=== PATIENT | female | born 1950 | race Caucasian/White ===

== ENCOUNTER 2017-10-27 12:47 | Emergency (ER) | payer MEDICARE ==
--- NOTE | 2017-10-27 14:12 | ERPHSYRPT ---
- History of Present Illness Time Seen by Provider: 10/27/17 14:12 Source: patient Exam Limitations: no limitations Patient Subjective Stated Complaint: pt reports increased shortness of breath the past 2 days. reports a productive cough with thick, clear sputum. also reports left rib pain. Triage Nursing Assessment: pt is aox3, pupils perrl, pt afebrile, pt short of breath at rest, pt is able to speak in 4-5 word sentences. lung sound are coarse with expiratory wheezes. radial pulses are strong and equal, cap refill < 3 seconds, no edema noted. intermittent cough noted upon exam with production of thick sputum. Physician History: The patient is a 67-year-old female with a history of COPD complains of 2 days of worsening cough with sputum and increasing shortness of breath. She uses 3 L of supplemental O2 by nasal cannula at home all the time. She had chills during the night a ago. Her past medical history is significant for hypertension, COPD, and high cholesterol. Timing/Duration: day(s) (2), gradual onset, worse Cough Quality/Degree: severe, productive cough Possible Cause: occasional episodes, smoke exposure Modifying Factors: Improves With: albuterol inhaler, albuterol nebulizer, coughing, exertion Associated Symptoms: chills, cough, nasal congestion, shortness of breath Allergies/Adverse Reactions: codeine Adverse Reaction (Verified 10/27/17 13:13) Home Medications: Albuterol Sulfate [Albuterol Sulfate Hfa] 8.5 gm IH QIDPRN PRN 10/27/17 [History ] Amlodipine Besylate 10 mg [Norvasc 10 MG] 10 mg PO DAILY 10/27/17 [History] Bumetanide 1 mg [Bumex 1 mg] 1 mg PO DAILY 10/27/17 [History] Ezetimibe 10 mg PO HS 10/27/17 [History] Fluticasone/Vilanterol [Breo Ellipta 100-25 Mcg INH] 0 mg IH QIDPRN PRN [History] Ipratropium/Albuterol Sulfate [Combivent Respimat 20-100 Mcg] 4 gm IH QID PRN PRN 10/27/17 [History] Meloxicam 15 mg [Meloxicam 15 MG] 15 mg PO DAILY 10/27/17 [History] Pramipexole Di-HCl [Mirapex] 0.125 mg PO HS 10/27/17 [History] Roflumilast [Daliresp] 500 mg PO DAILY 10/27/17 [History] Valsartan 80 mg PO DAILY 10/27/17 [History] Hx Tetanus, Diphtheria Vaccination/Date Given: Yes Hx Influenza Vaccination/Date Given: Yes Hx Pneumococcal Vaccination/Date Given: Yes Immunizations Up to Date: Yes - Review of Systems Constitutional: No Fever, No Chills Eyes: No Symptoms Ears, Nose, & Throat: No Symptoms Respiratory: Cough, Dyspnea, Dyspnea on Exertion (GUARDADO), Wheezing Cardiac: No Chest Pain, No Edema, No Syncope Abdominal/Gastrointestinal: No Abdominal Pain, No Nausea, No Vomiting, No Diarrhea Genitourinary Symptoms: No Dysuria Musculoskeletal: No Back Pain, No Neck Pain Skin: No Rash Neurological: No Dizziness, No Focal Weakness, No Sensory Changes Psychological: No Symptoms Endocrine: No Symptoms Hematologic/Lymphatic: No Symptoms Immunological/Allergic: No Symptoms All Other Systems: Reviewed and Negative - Past Medical History Pertinent Past Medical History: Yes Neurological History: No Pertinent History ENT History: Cataracts Cardiac History: Hypertension Respiratory History: COPD, Emphysema Musculoskeletal History: Arthritis GI Medical History: No Pertinent History History: Other Psycho-Social History: No Pertinent History Female Reproductive Disorders: Other - Past Surgical History Past Surgical History: Yes Gastrointestinal: Hernia Repair Female Surgical History: Hysterectomy Other Surgical History: BLADDER SURGERY - Social History Smoking Status: Former smoker How long have you smoked: 49 Drug Use: none Patient Lives Alone: Yes - Female History Hx Now: No - Nursing Vital Signs Nursing Vital Signs: Initial Vital Signs Temperature 98.5 F 10/27/17 12:57 Pulse Rate 85 10/27/17 12:57 Respiratory Rate 26 H 10/27/17 12:57 Blood Pressure 125/71 10/27/17 12:57 O2 Sat by Pulse Oximetry 96 10/27/17 12:57 Pain Scale Pain Intensity 8 - Physical Exam General Appearance: mild distress Eye Exam: PERRL/EOMI, eyes nml inspection Ears, Nose, Throat Exam: normal ENT inspection, TMs normal, pharynx normal, moist mucous membranes Neck Exam: normal inspection, non-tender, supple, full range of motion Respiratory Exam: diminished breath sounds, prolonged expirations, wheezing Cardiovascular Exam: regular rate/rhythm, normal heart sounds Gastrointestinal/Abdomen Exam: soft, No tenderness Pelvic Exam: not done Rectal Exam: not done Back Exam: normal inspection, No CVA tenderness, No vertebral tenderness Extremity Exam: normal inspection, normal range of motion Neurologic Exam: alert, oriented x 3, cooperative, normal mood/affect, sensation nml, No motor deficits Skin Exam: normal color, warm, dry, No rash Lymphatic Exam: No adenopathy SpO2 Interpretation: normal SpO2: 96 Oxygen Delivery: Nasal Cannula - Radiology Exams Chest X-ray Interpretation: Reviewed by me, Teleradiologist Report (per Dr Bob), Negative Ordered Tests: Active Orders 24 hr Category Date Time Status IV Insertion STAT Care 10/27/17 14:21 Active Oxygen-ED Only NASAL CANNULA 3 lpm Care 10/27/17 14:21 Active CHEST 2 VIEWS (PA AND LAT) Stat Exams 10/27/17 14:21 Completed CBC W DIFF Stat Lab 10/27/17 13:15 Completed CMP Stat Lab 10/27/17 13:15 Completed Lactic Acid Stat Lab 10/27/17 14:40 Completed NT PRO BNP Stat Lab 10/27/17 13:15 Completed TROPONIN Q3H Lab 10/27/17 13:15 Completed TROPONIN Q3H Lab 10/27/17 17:30 Ordered TROPONIN Q3H Lab 10/27/17 20:30 Ordered TROPONIN Q3H Lab 10/27/17 23:30 Ordered TROPONIN Q3H Lab 10/28/17 02:30 Ordered Peak Expiratory Flow Rate ONCE RT 10/27/17 14:34 Active Respiratory Nebulizer STAT RT 10/27/17 14:22 Completed Respiratory Therapy Assessment DAILY RT 10/27/17 14:33 Active Medication Summary Discontinued Medications Generic Name Dose Route Start Last Admin Trade Name Freq PRN Reason Stop Dose Admin Albuterol/Ipratropium 3 ml 10/27/17 14:21 10/27/17 14:30 Duoneb 0.5-3 Mg/3 Ml Neb IH 10/27/17 14:22 3 ml STAT ONE Administration Albuterol/Ipratropium Confirm 10/27/17 14:29 Duoneb 0.5-3 Mg/3 Ml Neb Administered 10/27/17 14:30 Dose 3 ml IH .STK-MED ONE Methylprednisolone Sodium Succinate 125 mg 10/27/17 14:21 10/27/17 14:40 Solu-Medrol 125 Mg IV 10/27/17 14:22 125 mg STAT ONE Administration Methylprednisolone Sodium Succinate Confirm 10/27/17 14:38 Solu-Medrol 125 Mg Administered 10/27/17 14:39 Dose 125 mg .ROUTE .STK-MED ONE Lab/Rad Data: Laboratory Result Diagrams 10/27/17 13:15 10/27/17 13:15 Laboratory Results 10/27/17 10/27/17 10/27/17 Range/Units 14:40 13:15 13:15 WBC (4.0-10.5) K/mm3 RBC (4.1-5.4) M/mm3 Hgb (12.0-16.0) gm/dl Hct (35-47) % MCV (78-100) fl MCH (26-32) pg MCHC (32-36) g/dl RDW (11.5-14.0) % Plt Count (150-450) K/mm3 MPV (6-9.5) fl Gran % (36.0-66.0) % Eos # (Auto) (0-0.5) Absolute Lymphs (auto) (1.0-4.6) Absolute Monos (auto) (0.0-1.3) Lymphocytes % (24.0-44.0) % Monocytes % (0.0-12.0) % Eosinophils % (0.00-5.0) % Basophils % (0.0-0.4) % Absolute Granulocytes (1.4-6.9) Basophils # (0-0.4) Sodium 141 (137-145) mmol/L Potassium 4.1 (3.5-5.1) mmol/L Chloride 101 (98-107) mmol/L Carbon Dioxide 32 H (22-30) mmol/L Anion Gap 12.7 (5-15) MEQ/L BUN 8 (7-17) mg/dL Creatinine 0.50 L (0.52-1.04) mg/dL Estimated GFR > 60.0 ML/MIN Glucose 120 H (74-106) mg/dL Lactic Acid 1.0 (0.4-2.0) Calcium 9.7 (8.4-10.2) mg/dL Total Bilirubin 0.40 (0.2-1.3) mg/dL AST 27 (14-36) U/L ALT 22 (0-35) U/L Alkaline Phosphatase 111 (38-126) U/L Troponin I < 0.012 (0.000-0.034) ng/mL NT-Pro-B Natriuret Pep 52.1 (0-900) pg/mL Serum Total Protein 7.7 (6.3-8.2) g/dL Albumin 4.5 (3.5-5.0) g/dL 10/27/17 Range/Units 13:15 WBC 7.9 (4.0-10.5) K/mm3 RBC 4.33 (4.1-5.4) M/mm3 Hgb 13.5 (12.0-16.0) gm/dl Hct 42.5 (35-47) % MCV 98.2 (78-100) fl MCH 31.2 (26-32) pg MCHC 31.8 L (32-36) g/dl RDW 13.0 (11.5-14.0) % Plt Count 254 (150-450) K/mm3 MPV 11.0 H (6-9.5) fl Gran % 59.7 (36.0-66.0) % Eos # (Auto) 0.19 (0-0.5) Absolute Lymphs (auto) 2.44 (1.0-4.6) Absolute Monos (auto) 0.56 (0.0-1.3) Lymphocytes % 30.7 (24.0-44.0) % Monocytes % 7.1 (0.0-12.0) % Eosinophils % 2.4 (0.00-5.0) % Basophils % 0.1 (0.0-0.4) % Absolute Granulocytes 4.74 (1.4-6.9) Basophils # 0.01 (0-0.4) Sodium (137-145) mmol/L Potassium (3.5-5.1) mmol/L Chloride (98-107) mmol/L Carbon Dioxide (22-30) mmol/L Anion Gap (5-15) MEQ/L BUN (7-17) mg/dL Creatinine (0.52-1.04) mg/dL Estimated GFR ML/MIN Glucose (74-106) mg/dL Lactic Acid (0.4-2.0) Calcium (8.4-10.2) mg/dL Total Bilirubin (0.2-1.3) mg/dL AST (14-36) U/L ALT (0-35) U/L Alkaline Phosphatase (38-126) U/L Troponin I (0.000-0.034) ng/mL NT-Pro-B Natriuret Pep (0-900) pg/mL Serum Total Protein (6.3-8.2) g/dL Albumin (3.5-5.0) g/dL - Progress Progress: improved Air Movement: good Progress Note: 10/27/17 15:33 wheezes resolved. Blood Culture(s) Obtained: No Antibiotics given: Yes Counseled pt/family regarding: lab results, diagnosis, need for follow-up, rad results - Departure Time of Disposition: 15:33 Departure Disposition: Home Clinical Impression: Bronchitis, Wheezing Condition: Stable Critical Care Time: No Referrals: BALAJI GÓMEZ [Primary Care Provider] - Additional Instructions: You have bronchitis with wheezing. You were given a DuoNeb treatment and Solu- Medrol 125 mg by IV in the ER. Take prednisone 60 mg daily for 5 days. Take azithromycin 500 mg a day and 250 mg daily for 4 more days. Take Tessalon 100 mg every 8 hours as needed for cough. Follow-up with your primary medical doctor in 2-3 days. Prescriptions: Benzonatate [Tessalon Perle] 100 mg PO Q8H PRN PRN #10 capsule PRN Reason: Cough Azithromycin 250 mg [Zithromax 250 MG TABLET] 250 mg PO ZPACK #6 tablet Prednisone 20 mg [Deltasone 20 mg] 3 tab PO DAILY #15 tablet
[2017-10-27] MEDS ORDERED: DUONEB 0.5-3 MG/3 ml Neb IH ONE ×2 (14:21→14:29)
[2017-10-27] MEDS ORDERED: solu-MEDROL 125 MG IV ONE (14:21)
[2017-10-27] MEDS ORDERED: solu-MEDROL 125 MG ONE (14:38)
[2017-10-27 15:06] LABS: BASOPHIL % 0.1 % (0.0-0.4); Basophil (Absolute #) 0.01 (0-0.4); Eosinophil % 2.4 % (0.00-5.0); Eosinophil (Absolute #) 0.19 (0-0.5); Granulocyte Absolute (ANC) 4.74 (1.4-6.9); Granulocytes % 59.7 % (36.0-66.0); Hematocrit 42.5 % (35-47); Hemoglobin 13.5 gm/dl (12.0-16.0); Lymphocyte (Absolute #) 2.44 (1.0-4.6); Lymphocytes % 30.7 % (24.0-44.0); Mean Cell Volume 98.2 fl (78-100); Mean Corpuscular Hemoglobin 31.2 pg (26-32); Mean Corpuscular Hgb Concent. 31.8 g/dl (32-36); Monocyte (Absolute #) 0.56 (0.0-1.3); Monocytes % 7.1 % (0.0-12.0); Platelet Count 254 K/mm3 (150-450); Red Blood Count 4.33 M/mm3 (4.1-5.4); White Blood Count 7.9 K/mm3 (4.0-10.5)
[2017-10-27 15:08] LABS: ALBUMIN 4.5 g/dL (3.5-5.0); ALKALINE PHOSPHATASE 111 U/L (38-126); ANION GAP 12.7 MEQ/L (5-15); BLOOD UREA NITROGEN 8 mg/dL (7-17); CHLORIDE 101 mmol/L (98-107); Calcium 9.7 mg/dL (8.4-10.2); Carbon Dioxide 32 mmol/L (22-30); Glucose 120 mg/dL (74-106); NT PRO BNP 52.1 pg/mL (0-900); Potassium 4.1 mmol/L (3.5-5.1); SGOT/AST 27 U/L (14-36); SGPT/ALT 22 U/L (0-35); SODIUM 141 mmol/L (137-145); Total Protein 7.7 g/dL (6.3-8.2)
--- NOTE | 2017-10-27 15:19 | XRAY ---
Indication: Short of breath 2 weeks. Comparison: None PA/lateral chest hyperinflated and clear with a few incidental calcified granulomas. Heart and mediastinal structures within normal limits. Bony thorax intact with minimal degenerative changes. Impression: Nonacute hyperinflated chest with chronic features.
[2017-10-27] MEDS ORDERED: ROCEPHIN 1 Gm-D5w 50 ml Bag** 1 G/50 ML IVPB IV STA (15:34)
[2017-10-27] MEDS ORDERED: ROCEPHIN 1 Gm-D5w 50 ml Bag** 1 G/50 ML IVPB IV ONE (15:36)
[2017-10-27 16:27] VITALS: BP 120/83; PULSE 78; O2SAT 96
== END 2017-10-27 16:25 | disposition home or self-care (01) ==
LOC: ED 12:47
DX: J40 Bronchitis, not specified as acute or chronic (principal); J44.9 Chronic obstructive pulmonary disease, unspecified; I10 Essential (primary) hypertension; Z79.899 Other long term (current) drug therapy; Z99.81 Dependence on supplemental oxygen
CPT/HCPCS: 36000; 36415; 71046; 80053; 83605; 83880; 84484; 85025; 94150; 94640; 96365; 96374; 99284; J0696; J2930; A9270-GY